=== PATIENT | male | born 2000 | race Caucasian/White ===

== ENCOUNTER 2021-12-18 20:24 | Emergency (ER) | payer MEDICAID ==
[~2021-12-18] VITALS: Ht 177.8 cm; Wt 114.3 kg
[2021-12-18 20:41] VITALS: BP 112/82
[2021-12-18] MEDS ORDERED: KETOROLAC 30 MG/ML VIAL IM ONE (23:20)
[2021-12-18] MEDS ORDERED: diazePAM 5 MG TAB PO ONE (23:20)
[2021-12-19] MEDS ORDERED: CYCL-711 PO (00:13)
[2021-12-19] MEDS ORDERED: NAPR-54 PO (00:13)
[2021-12-19 01:20] VITALS: BP 117/60
== END 2021-12-19 01:20 | disposition home or self-care (01) ==
LOC: MED 20:24
DX: S39.92XA Unspecified injury of lower back, initial encounter (principal); Z79.899 Other long term (current) drug therapy; W18.30XA Fall on same level, unspecified, initial encounter; Y93.89 Activity, other specified; Y92.89 Other specified places as the place of occurrence of the external cause; Y99.8 Other external cause status
CPT/HCPCS: 72100; 96372; 99283; J1885

== ENCOUNTER 2024-02-02 17:53 | Emergency (ER) | payer MEDICAID ==
[~2024-02-02 17:53] MED LIST: CYCL-711 PO; NAPR-337 PO
--- NOTE | 2024-02-02 18:05 | NUR ---
CALLED NAME, NO ANSWER
--- NOTE | 2024-02-02 18:10 | NUR ---
CALLED NAME, NO ANSWER
--- NOTE | 2024-02-02 18:15 | NUR ---
CALLED NAME, NO ANSWER
--- NOTE | 2024-02-02 18:16 | NUR ---
PATIENT LEFT WITHOUT BEING SEEN BY DR. FAM. NO FURTHER CARE PROVIDED FOR PATIENT.
== END 2024-02-02 18:16 | disposition left against medical advice (07) ==
LOC: MED 17:53
DX: Z04.1 Encounter for examination and observation following transport accident (principal); Z53.21 Procedure and treatment not carried out due to patient leaving prior to being seen by health care provider